=== PATIENT | female | born 2000 | race Two or more races ===

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

== ENCOUNTER 2018-01-10 17:44 | Emergency (ER) | payer MEDICAID ==
[~2018-01-10] VITALS: Ht 152.4 cm; Wt 47.2 kg
[2018-01-10 18:12] VITALS: BP 130/70
== END 2018-01-10 20:45 | disposition left against medical advice (07) ==
LOC: ER 17:47
DX: S01.311D Laceration without foreign body of right ear, subsequent encounter (principal); Z53.21 Procedure and treatment not carried out due to patient leaving prior to being seen by health care provider; Z48.02 Encounter for removal of sutures

== ENCOUNTER 2019-08-02 10:40 | Emergency (ER) | payer MEDICAID ==
[~2019-08-02] VITALS: Ht 152.4 cm; Wt 50.8 kg
[2019-08-02 11:07] VITALS: BP 115/63
== END 2019-08-02 13:31 | disposition home or self-care (01) ==
LOC: ER 10:46
DX: R23.8 Other skin changes (principal); L70.0 Acne vulgaris